=== PATIENT | male | born 1960 | race Two or more races ===

== ENCOUNTER 2018-04-19 19:13 | Emergency (ER) | payer SELFPAY ==
[2018-04-19 19:22] VITALS: BP 136/99; PULSE 86; RESP 16; TEMP 97.7; O2SAT 97
== END 2018-04-19 20:00 | disposition left against medical advice (07) ==
LOC: H.ER 19:13
DX: Z02.89 Encounter for other administrative examinations (principal)
CPT/HCPCS: 99281; LWBS0